=== PATIENT | female | born 1945 ===

== ENCOUNTER 2019-01-22 11:57 | Emergency (ER) | payer OTHER ==
[~2019-01-22] VITALS: Ht 160 cm; Wt 72.6 kg
[~2019-01-22 11:57] MED LIST: LASIX20 MG; NORVASC5 MG
[2019-01-22] MEDS ORDERED: CIPRO500 MG (12:21)
[2019-01-22] MEDS ORDERED: DEPAKOTE ER250 MG (12:21)
[2019-01-22] MEDS ORDERED: CLONAZEPAM0.25 MG (12:22)
[2019-01-22] MEDS ORDERED: PAXIL CR25 MG (12:22)
== END 2019-01-22 13:25 | disposition home or self-care (01) ==
LOC: ER 11:57
DX: S90.32XA Contusion of left foot, initial encounter (principal); S90.112A Contusion of left great toe without damage to nail, initial encounter; W18.09XA Striking against other object with subsequent fall, initial encounter; Y93.89 Activity, other specified; Y92.018 Other place in single-family (private) house as the place of occurrence of the external cause; Y99.8 Other external cause status